=== PATIENT | male | born 1990 | race Caucasian/White ===

== ENCOUNTER 2019-05-03 15:59 | Emergency (ER) | payer BC ==
--- OUTSIDE RECORDS SUMMARY | 2019-05-03 16:05 | XMS REPORT | Continuity of Care Document ---
:1990 External Reference #:[id number] Author Name Bridget Parkinson MD (transmitted by agent of provider Yasemin Vargas) Address [address], [address] [place] [address] Care Team Providers Name Role Phone Bashir Lee MD - Care Team Information [phone] Otolaryngology Coat Cutter Karla Tomlin DO - Care Team Information [phone] Neuromusculoskeletal Medicine & OMM Coat Cutter Alexandro Felder III, MD - Internal Care Team Information [phone] Medicine Co[facility] - Sleep Disorder Care Team Information [phone] Diagnostic Coat Cutter Problems Active Problems Provider Date Tricuspid valve disorder, Samm Musa M.D.,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 Irritable bowel syndrome Samm Musa M.D.,FACP Onset: 01/30/2011 Allergic asthma without status Samm Musa M.D.,FACP Onset: 01/30/2011 asthmaticus Anxiety state Samm Musa M.D.,FACP Onset: 05/11/2012 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 Cycles Allergies, Adverse Reactions, Alerts Active Allergies Reaction Severity Comments Date Tylenol 08/15/2014 Inactive Allergies NKDA 09/22/2006 Medications Active Medications SIG Qnty Indications Ordering Date Provider Escitalopram 1 by mouth every day 30tabs Other Ordering 04/11/2019 Oxalate Provider 20mg Tablets Ondansetron HCL 1 every 6 hours as 90tabs Alexandro Day 01/13/2017 4mg needed Bethany Felder Tablets Zolpidem Tartrate 1/2-1 tab by mouth 30tabs F90.9 Alexandro Day 11/02/2012 every night at Bethany Felder 10mg Tablets bedtime as needed needs appointmentmax 1 tablet daily Ventolin HFA 2 puffs po qid prn 1month 493.00 Samm Eng 01/07/2011 Bethany Musa,FACP 108(90Base) mcg/ac Aerosol Qnasl prn 8.700gm Samm Eng 80mcg/Act Bethany Musa,FACP Aerosol Ibuprofen as needed 30caps Alexandro Day 200mg Bethany Felder Capsules Immunizations Description No Information Available Vital Signs Date Vital Result Comment 04/11/2019 1:54pm Height 74 inches 6'2" Weight 209.00 lb Heart Rate 84 /min BP Systolic 120 mmHg BP Diastolic 70 mmHg O2 % BldC Oximetry 97 % BMI (Body Mass Index) 26.8 kg/m2 02/21/2019 4:00pm Height 74 inches 6'2" Weight 210.00 lb BP Systolic Sitting 127 mmHg BP Diastolic Sitting 77 mmHg BMI (Body Mass Index) 27.0 kg/m2 Results Description No Information Available Procedures Date Code Description Status 12/13/2013 21048646 Colonoscopy Completed Medical Devices Description No Information Available Encounters Type Date Location Provider Dx Diagnosis Office Visit 02/21/2019 District Home Economics Agent Internal Alexandro Felder, M54.2 Cervicalgia 3:40p Medicine - Ashely Sims G47.9 Sleep disorder, unspecified K58.9 Irritable bowel syndrome without diarrhea F90.9 Attention-deficit hyperactivity disorder, unspecified type Assessments Date Code Description Provider 04/11/2019 G47.9 Sleep disorder, unspecified Bridget Parkinson MD 04/11/2019 G47.00 Insomnia, unspecified Bridget Parkinson MD 02/21/2019 M54.2 Cervicalgia Alexandro Felder M.D. 02/21/2019 G47.9 Sleep disorder, unspecified Alexandro Felder M.D. 02/21/2019 K58.9 Irritable bowel syndrome without diarrhea Alexandro Felder M.D. 02/21/2019 F90.9 Attention-deficit hyperactivity disorder, Alexandro Felder M.D. unspecified type Plan of Treatment 04/11/2019 - Bridget Parkinson MDG47.9 Sleep disorder, unspecifiedNew Orders:Home Sleep Testing, Ordered: 04/11/19Follow up:2 uezjjJ06.00 Insomnia, unspecified Functional Status Description No Information Available Mental Status Description No Information Available Referrals Refer to Reason for Referral Status Appt Date [facility] poor sleep, fatigue, occ awakenings "gasping' for Sent air. (+) abnormal overnight oximetry [address] [place] [phone] [phone]
--- OUTSIDE RECORDS SUMMARY | 2019-05-03 16:05 | XMS REPORT | Continuity of Care Document ---
:1990 External Reference #:[id number] Author Name Zeinab Black NP (transmitted by agent of provider Yasemin Vargas) Address [address], [address] [place] [address] Care Team Providers Name Role Phone Bashir Lee MD - Care Team Information [phone] Otolaryngology Public Information Relations Manager Karla Tomlin DO - Care Team Information [phone] Neuromusculoskeletal Medicine & OMM Public Information Relations Manager Alexandro Felder III, MD - Internal Care Team Information [phone] Medicine Public Information Relations Manager [facility] - Sleep Disorder Care Team Information [phone] Diagnostic Public Information Relations Manager Problems Active Problems Provider Date Tricuspid valve [...] Patient has never smoked Smoking Status Reviewed: 05/02/19 Patient has never smoked Exercise Type/Frequency Exercises regularly Gym 3x/week for weights, cardio. Cycles Allergies, Adverse Reactions, Alerts Active Allergies Reaction Severity Comments Date Tylenol 08/15/2014 Inactive Allergies NKDA 09/22/2006 Medications Active Medications SIG Qnty Indications Ordering Date Provider Ventolin HFA 2 puffs po qid prn 1month 493.00 Samm Eng 05/01/2019 Bethany Musa,FACP 108(90Base) mcg/Act Aerosol Ventolin HFA 2 puffs po qid prn 1month 493.00 Alexandro Day 05/01/2019 Bethany Felder 108(90Base) mcg/Act Aerosol Escitalopram 1 by mouth every day 30tabs Alexandro E. 04/11/2019 Oxalate Bethany Felder 20mg Tablets Ondansetron HCL 1 every 6 hours as 20tabs Alexandro ERiley 01/13/2017 4mg needed Bethany Felder Tablets Zolpidem Tartrate 1/2-1 tab by mouth 30tabs F90.9 Alexandro E. 11/02/2012 every night at Bethany Felder 10mg Tablets bedtime as needed needs appointmentmax 1 tablet daily Qnasl as needed 8.700gm Alexandro E. 80mcg/Act Bethany Felder Aerosol Ibuprofen as needed 30caps Alexandro E. 200mg Bethany Felder Capsules Immunizations Description No Information Available Vital Signs Date Vital Result Comment 05/02/2019 12:50pm Height 74 inches 6'2" Weight 205.00 lb Heart Rate 81 /min BP Systolic 106 mmHg BP Diastolic 68 mmHg O2 % BldC Oximetry 96 % BMI (Body Mass Index) 26.3 kg/m2 04/11/2019 1:54pm Height 74 inches 6'2" Weight 209.00 lb Heart Rate 84 /min BP Systolic 120 mmHg BP Diastolic 70 mmHg O2 % BldC Oximetry 97 % BMI (Body Mass Index) 26.8 kg/m2 Results Description No Information Available Procedures Date Code Description Status 04/15/2019 94163 Sleep Study Unattended,HRT Rate,Oxygen Sat,Resp Completed Effort/Airflow 12/13/2013 73122807 Colonoscopy Completed Medical Devices Description No Information Available Encounters Type Date Location Provider Dx Diagnosis Office Visit 05/02/2019 Pulmonology And Zeinab G47.33 Obstructive sleep 1:00p [facility] apnea (adult) [facility] (pediatric) G47.00 Insomnia, unspecified R53.83 Other fatigue Office Visit 04/11/2019 2:30p Pulmonology And Bridget G47.9 Sleep disorder, [facility] unspecified [facility] G47.00 Insomnia, unspecified Office Visit 02/21/2019 3:40p [facility] Internal Alexandro Felder M54.2 Cervicalgia Medicine - [facility] Bethany G47.9 Sleep disorder, unspecified K58.9 Irritable bowel syndrome without diarrhea F90.9 Attention-deficit hyperactivity disorder, unspecified type Assessments Date Code Description Provider 05/02/2019 G47.33 Obstructive sleep apnea (adult) (pediatric) Zeinab Black NP 05/02/2019 G47.00 Insomnia, unspecified eZinab Black NP 05/02/2019 R53.83 Other fatigue Zeinab Black NP 04/15/2019 G47.33 Obstructive sleep apnea (adult) (pediatric) Bridget Parkinson MD 04/11/2019 G47.9 Sleep disorder, unspecified Bridget Parkinson MD 04/11/2019 G47.00 Insomnia, unspecified Bridget Parkinson MD 02/21/2019 M54.2 Cervicalgia Alexandro Felder M.D. 02/21/2019 G47.9 Sleep disorder, unspecified Alexandro Felder M.D. 02/21/2019 K58.9 Irritable bowel syndrome without diarrhea Alexandro Felder M.D. 02/21/2019 F90.9 Attention-deficit hyperactivity disorder, Alexandro Felder M.D. unspecified type Plan of Treatment Future Appointment(s):05/08/2019 4:20 pm - Alexandro Felder M.D. at [facility] Internal Medicine - [facility]05/02/2019 - Zeinab Black NPG47.33 Obstructive sleep apnea (adult) (pediatric)Follow up:6 weeksRecommendations:You are being set up with CPAP for your sleep apnea through [facility] . They will call you to set up an appointment to get fit for a mask and sweet pickled fruit maker your machine. If you have difficulty with your equipment, or need to replace your mask or hoses, please contact your homecare agency. If you have any further questions, please call the [facility] at [phone] Ifyou have any sleepiness while driving you MUST avoid operating a vehicle or machinery. If you feel tired while driving parts puller and take a nap or switch drivers. If you know you are sleepy and need togo somewhere, arrange for a ride or use public transportation. It is very important to not risk yoursafety or the safety of others.G47.00 Insomnia, rxzaeonppxiB94.83 Other fatigue Functional Status Description No Information Available Mental Status Description No Information Available Referrals Refer to Reason for Referral Status Appt Date [facility] poor sleep, fatigue, occ awakenings "gasping' for Sent air. (+) abnormal overnight oximetry [address] [place] [address] [phone]
[2019-05-03 16:17] VITALS: BP 125/74
--- NOTE | 2019-05-03 17:29 | UC ---
Back Pain HPI - HPI Summary HPI Summary: Patient is 28yo male presenting with mid back pain that began this morning when he woke up and gradually worsened throughout the day. Patient states pain is severe and sharp and he was nauseous earlier. Denies radiating pain, states it stays in general mid back area. Patient states he has had "back issues in the past." He is currently attending PT for back pain. 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 States he has had flexeril in the past that "doesn't do much." - History of Current Complaint Chief Complaint: UCBackPain Stated Complaint: BACK PAIN Hx Obtained From: Patient Onset/Duration: Sudden Onset, Lasting Hours Severity Initially: Moderate Severity Currently: Severe Pain Intensity: 8 - Allergies/Home Medications Allergies/Adverse Reactions: Allergies Allergy/AdvReac Type Severity Reaction Status Date / Time No Known Allergies Allergy Verified 05/03/19 16:18 Home Medications: Home Medications Ibuprofen TAB* [Motrin TAB* 400 MG] 400 mg PO Q6H PRN 05/03/19 [History Confirmed 05/03/19] Ondansetron ODT TAB* [Zofran 4 MG Odt TAB*] 4 mg PO Q6H PRN 05/03/19 [History Confirmed 05/03/19] Zolpidem TAB* [Ambien TAB*] 10 mg PO BEDTIME PRN 05/03/19 [History Confirmed ] PMH/Surg Hx/FS Hx/Imm Hx - Surgical History Surgical History: None - Family History Known Family History: Positive: Unknown, Non-Contributory - Social History Occupation: Employed Full-time Alcohol Use: Weekly Alcohol Amount: 3/week Substance Use Type: None Smoking Status (MU): Never Smoked Tobacco Have You Smoked in the Last Year: No Review of Systems All Other Systems Reviewed And Are Negative: No Constitutional: Positive: Negative Skin: Positive: Negative Respiratory: Positive: Negative Cardiovascular: Positive: Negative Gastrointestinal: Positive: Negative Musculoskeletal: Positive: Myalgia - mid back. Negative: Decreased ROM Neurological: Negative: Weakness, Paresthesia, Numbness Physical Exam Triage Information Reviewed: Yes Appearance: Well-Appearing, No Pain Distress, Well-Nourished, Other: - sitting comfortably in chair Vital Signs: Initial Vital Signs Temp 98.0 F 05/03/19 16:14 Pulse 63 05/03/19 16:14 Resp 16 05/03/19 16:14 BP 125/74 05/03/19 16:14 Pulse Ox 98 05/03/19 16:14 Vital Signs Reviewed: Yes Eyes: Positive: Conjunctiva Clear ENT: Positive: Hearing grossly normal Neck: Positive: Supple Respiratory Exam: Normal Respiratory: Positive: Lungs clear, Normal breath sounds, No respiratory distress Cardiovascular Exam: Normal Cardiovascular: Positive: RRR. Negative: Tachycardia Musculoskeletal Exam: Normal Musculoskeletal: Positive: Strength Intact, ROM Intact, No Edema, Other: - no tenderness to palpation of mid back muscle or T spine Neurological Exam: Other - sensation grossly intact Neurological: Positive: Alert Psychological: Positive: Age Appropriate Behavior Skin Exam: Normal Diagnostics - Radiology thoracic Radiology Interpretation Completed By: Radiologist Summary of Radiographic Findings: IMPRESSION: MILD SCOLIOSIS DEGENERATIVE DISC DISEASE. Back Pain Course/Dx - Course Course Of Treatment: I discussed xray findings of mild scoliosis and DJD with patient. I offered him flexeril and follow up with sports medicine for further eval. Patient states he is seeing his primary on Wednesday and "is afraid his pain will be just as bad or worse tomorrow." Stated "I am uncomfortable asking, but would like an opiate for my pain." I discussed with him that I am comfortable giving flexeril only in this situation. Patient sitting comfortably with normal PE. Patient states he knows Dr. Ochoa who is also working, so I agreed to have Dr. Ochoa come and examine him per his request. Dr. Ochoa saw the patient and was comfortable providing him with hydrocodone until he is able to follow up. Patient voiced understanding and agreed with plan. - Differential Dx/Diagnosis Provider Diagnosis: Thoracic back pain Discharge ED - Sign-Out/Discharge Documenting (check all that apply): Patient Departure All imaging exams completed and their final reports reviewed: Yes - Discharge Plan Condition: Stable Disposition: HOME Prescriptions: Cyclobenzaprine TAB* [Flexeril 10 MG TAB*] 10 mg PO BID PRN #10 tab PRN Reason: Spasms - Back HYDROcodone/ACETAMIN 5-325 MG* [Sesser 5-325 TAB*] 1 tab PO Q4H PRN #20 tab MDD 6 PRN Reason: Pain - Moderate Patient Education Materials: Back Pain (ED), Degenerative Disc Disease (ED) Referrals: [facility] [Provider Group] Faheem Sim MD [Medical Doctor] - If Needed Alexandro Felder MD [Primary Care Provider] - If Needed Additional Instructions: As discussed, your xrays showed mild scoliosis and degenerative disc disease. Follow up with the orthopedic referral listed below is recommended for further evaluation of your pain symptoms. You may continue with symptomatic treatment, including heating and stretching. You may also take Flexeril as prescribed to help relieve pain and spasms. - Billing Disposition and Condition Condition: STABLE Disposition: Home
== END 2019-05-03 18:40 | disposition home or self-care (01) ==
LOC: UCEAST 15:59
DX: M54.6 Pain in thoracic spine (principal); M41.84 Other forms of scoliosis, thoracic region; M51.34 Other intervertebral disc degeneration, thoracic region
CPT/HCPCS: 72070; 99212; G0463

== ENCOUNTER 2019-07-23 16:26 | Emergency (ER) | payer BC, OTHER ==
[2019-07-23] MEDS ORDERED: Ibuprofen TAB* 400 MG PO ONE (16:47)
[2019-07-23] MEDS ORDERED: Cyclobenzaprine TAB* 10 MG PO ONE (16:47)
--- NOTE | 2019-07-23 16:49 | ED ---
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 Denies any other pain, injury or symptoms. - History of Current Complaint Chief Complaint: EDBackInjuryPain Stated Complaint: UPPER BACK INJURY PERPT Time Seen by Provider: 07/23/19 16:36 Hx Obtained From: Patient Onset/Duration: Sudden Onset Onset/Duration: Traumatic Timing: Lasting Minutes Severity Initially: Moderate Severity Currently: Moderate Pain Intensity: 5 Pain Scale Used: 0-10 Numeric Character: Sharp, Aching, Throbbing Aggravating Symptom(s): Movement, Bending Associated Signs And Symptoms: Positive: Negative - Allergies/Home Medications Allergies/Adverse Reactions: Allergies Allergy/AdvReac Type Severity Reaction Status Date / Time No Known Allergies Allergy Verified 07/23/19 16:31 PMH/Surg Hx/FS Hx/Imm Hx Endocrine/Hematology History: Denies: Hx Diabetes Cardiovascular History: Reports: Other Cardiovascular Problems/Disorders - h/o heart murmur chiki in 2003 Denies: Hx Pacemaker/ICD Respiratory History: Reports: Hx Asthma - Dx in 2013 Denies: Other Respiratory Problems/Disorders GI History: Reports: Hx Irritable Bowel - POSSIBLE Denies: Other GI Disorders History: Denies: Hx Dialysis, Hx Renal Disease Musculoskeletal History: Reports: Hx Scoliosis Sensory History: Denies: Hx Contacts or Glasses, Hx Hearing Aid Opthamlomology History: Denies: Hx Contacts or Glasses EENT History: Denies: Hx Deafness Neurological History: Denies: Hx Headaches, Other Neuro Impairments/Disorders Psychiatric History: Reports: Hx Anxiety - SHORT TERM- OK NOW Denies: Hx Panic Disorder - Surgical History Surgery Procedure, Year, and Place: WISDOM TEETH; Hx Anesthesia Reactions: No Infectious Disease History: No Infectious Disease History: Reports: Hx Shingles - LESS THAN A YEAR OLD Denies: Traveled Outside the [place] in Last 30 Days - Family History Known Family History: Positive: Unknown, Non-Contributory - Social History Alcohol Use: Weekly Alcohol Amount: 3/week Substance Use Type: Reports: None Smoking Status (MU): Never Smoked Tobacco Have You Smoked in the Last Year: No Review of Systems Constitutional: Negative Eyes: Negative ENT: Negative Cardiovascular: Negative Respiratory: Negative Gastrointestinal: Negative Genitourinary: Negative Musculoskeletal: Other Skin: Negative Neurological: Negative Psychological: Normal All Other Systems Reviewed And Are Negative: Yes Physical Exam - Summary Physical Exam Summary: Tenderness along left paraspinal muscles of thoracic spine. PMS intact distally bilateral lower extremities bilateral upper extremities. No bony point tenderness. Triage Information Reviewed: Yes Vital Signs On Initial Exam: Initial Vitals Temp Pulse Resp BP Pulse Ox 98.7 F 79 16 128/89 98 07/23/19 16:28 07/23/19 16:28 07/23/19 16:28 07/23/19 16:28 07/23/19 16:28 Vital Signs Reviewed: Yes Appearance: Positive: Well-Appearing Skin: Positive: Warm Head/Face: Positive: Normal Head/Face Inspection Eyes: Positive: Normal Neck: Positive: Supple Respiratory/Lung Sounds: Positive: Clear to Auscultation Cardiovascular: Positive: Normal Abdomen Description: Positive: Nontender Musculoskeletal: Positive: Normal Neurological: Positive: Normal Psychiatric: Positive: Normal AVPU Assessment: Alert - Trufant Coma Scale Best Eye Response: 4 - Spontaneous Best Motor Response: 6 - Obeys Commands Best Verbal Response: 5 - Oriented Coma Scale Total: 15 Procedures - Sedation Patient Received Moderate/Deep Sedation with Procedure: No Diagnostics - Vital Signs Vital Signs Temp Pulse Resp BP Pulse Ox 07/23/19 16:28 98.7 F 79 16 128/89 98 - Laboratory Lab Statement: Any lab studies that have been ordered have been reviewed, and results considered in the medical decision making process. 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 Denies any other pain, injury or symptoms. Vital signs within normal limits. - Diagnoses Provider Diagnoses: Muscle spasm of back Discharge ED - Sign-Out/Discharge Documenting (check all that apply): Patient Departure - Discharge Plan Condition: Stable Disposition: HOME Patient Education Materials: Muscle Spasm (ED) Referrals: Alexandro Felder MD [Primary Care Provider] - Additional Instructions: Alternate ibuprofen 600 mg with Tylenol 650 mg every 3 hours for back pain. Take Valium as directed when you get home. Follow up with primary care. Return to the ED for any new or worsening symptoms. - Billing Disposition and Condition Condition: STABLE Disposition: Home
[2019-07-23 17:29] VITALS: BP 128/74
== END 2019-07-23 17:27 | disposition home or self-care (01) ==
LOC: ED 16:26
DX: M62.830 Muscle spasm of back (principal); M54.6 Pain in thoracic spine; F41.9 Anxiety disorder, unspecified
CPT/HCPCS: 99282; A9270-GY